=== PATIENT | female | born 1990 | race Caucasian/White ===

== ENCOUNTER 2020-04-30 17:41 | Emergency (ER) | payer OTHER ==
[~2020-04-30] VITALS: Ht 165.1 cm; Wt 84.4 kg
[2020-04-30 17:51] VITALS: Ht 165.1 cm; Wt 84.4 kg
[2020-04-30 18:29] VITALS: BP 141/92
== END 2020-04-30 18:29 | disposition home or self-care (01) ==
LOC: ED 17:41
DX: S16.1XXA Strain of muscle, fascia and tendon at neck level, initial encounter (principal); E28.2 Polycystic ovarian syndrome; Z98.84 Bariatric surgery status; Y04.8XXA Assault by other bodily force, initial encounter; Y93.89 Activity, other specified; Y92.89 Other specified places as the place of occurrence of the external cause; Y99.8 Other external cause status